=== PATIENT | male | born 1965 | race Caucasian/White ===

== ENCOUNTER 2021-11-19 08:29 | Outpatient (CLI) | payer OTHER, SELFPAY ==
[2021-11-19 14:16] LABS: Chloride* 105 mmol/L (96-114); Potassium* 4.4 mmol/L (3.6-5.1); Sodium* 140 mmol/L (135-149)
[2021-11-19 14:19] LABS: Blood Urea Nitrogen* 17 mg/dL (7-30); Carbon Dioxide* 27 mmol/L (20-32); Cholesterol* 158 mg/dL (90-199); Creatinine* 1.1 mg/dL (0.5-1.5); Estimated Glomerular Filt Rate 78 ml/min; Glucose* 99 mg/dL (60-115)
[2021-11-19 14:20] LABS: Calcium* 9.3 mg/dL (8.4-10.6); HDL Cholesterol* 36 mg/dL (>=40); LDL Cholesterol Calculated 97 mg/dL (<100); Triglycerides* 125 mg/dL (40-149)
[2021-11-19 14:49] LABS: PSA Screen* 1.57 ng/mL (0.10-4.00)
== END 2021-11-19 08:30 | disposition home or self-care (01) ==
PROVIDERS: PCP Family Medicine; Visit Provider Family Medicine
DX: I10 Essential (primary) hypertension (principal); M70.61 Trochanteric bursitis, right hip; Z12.5 Encounter for screening for malignant neoplasm of prostate; Z13.6 Encounter for screening for cardiovascular disorders
CPT/HCPCS: 80048; 80061; 84153

== ENCOUNTER 2023-01-28 11:34 | Outpatient (CLI) | payer OTHER, SELFPAY | END 2023-01-28 11:35 | disposition home or self-care (01) | LOC: LONREF 11:35 | PROVIDERS: PCP Family Medicine; Visit Provider Family Medicine | DX: I10 Essential (primary) hypertension (principal) | CPT/HCPCS: 80048 ==

== ENCOUNTER 2023-08-10 11:05 | Outpatient (CLI) | payer OTHER, SELFPAY | END 2023-08-10 11:06 | disposition home or self-care (01) | PROVIDERS: PCP Family Medicine; Visit Provider Family Medicine | DX: I10 Essential (primary) hypertension (principal); Z12.5 Encounter for screening for malignant neoplasm of prostate | CPT/HCPCS: 80048; G0103 ==

== ENCOUNTER 2024-09-21 08:50 | Outpatient (CLI) | payer BC, SELFPAY | END 2024-09-21 08:51 | disposition home or self-care (01) | PROVIDERS: PCP Family Medicine; Visit Provider Family Medicine | DX: I10 Essential (primary) hypertension (principal) | CPT/HCPCS: 80048; 80061 ==